=== PATIENT | male | born 1955 | race Caucasian/White ===

== ENCOUNTER → 2016-10-14 | Outpatient (CLI) | payer BC | LOC: RAD 09:10 | PROVIDERS: ATTEND Family Medicine | DX: R13.14 Dysphagia, pharyngoesophageal phase (principal) | CPT/HCPCS: 74220 ==

== ENCOUNTER 2016-10-28 09:02 | Day surgery (SDC) | payer BC ==
[~2016-10-28] VITALS: Ht 177.8 cm; Wt 108.0 kg
[~2016-10-28 09:02] MED LIST: CYCL10TA45 PO; FLUT16SP NS; HYDR-3702 PO; LACTATED RINGERS 1,000 ML IV SCH; LORA-714 PO; MELO-249 PO; METH4TAB27 PO; MNTL10T PO; NAPR375T71 PO; SERT25TA PO; SODIUM CHLORIDE FLUSH 3 ML SYR IV PRN; TBR.3OP51 OD; TIZAN4T PO
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
[2016-10-28 09:13] VITALS: BP 144/96
[2016-10-28] MEDS ORDERED: LIDOCAINE 4% TOPICAL 4.5 ML SYR ONE (09:34)
[2016-10-28] MEDS ORDERED: SIMETHICONE 40 MG/0.6 ML (MYLICON DROPS) ORAL SYRINGE ONE (09:34)
[2016-10-28] MEDS ORDERED: PROPOFOL 20 ML IV ONE (10:39)
[2016-10-28] MEDS ORDERED: MIDAZOLAM 2 MG/2 ML (VERSED) VIAL ONE (10:39)
[2016-10-28] MEDS ORDERED: ALFENTANIL 500 MCG/ML (ALFENTA) 5 ML AMP IV ONE (10:39)
[2016-10-28 11:29] VITALS: BP 127/82
[2016-10-28 11:47] VITALS: BP 145/98
--- NOTE | 2016-10-28 11:52 | OPERATIVE REPORT ---
DATE OF OPERATION: 10/28/2016 PRE-OPERATIVE DIAGNOSIS: 1. Dysphagia to solids 2. Abnormal barium swallow. POST-OPERATIVE DIAGNOSIS: Mass lesion at upper esophageal sphincter, suspicious for malignancy. OPERATIVE PROCEDURE: Esophagogastroduodenoscopy with biopsies SURGEON: Dameon Leal MD ANESTHESIA: Monitored anesthesia care FINDINGS: 1. At the upper esophageal sphincter, there is a friable, inflamed mass lesion that is suspicious for malignancy. Biopsies were obtained. 2. The duodenal mucosa appeared moderately inflamed, as did the antrum. No other abnormalities were seen. INDICATION: The patient is a 61-year-old referred by Dr. Lal with dysphagia to solids, and a barium swallow that appears to show a filling defect at the upper esophageal sphincter suspicious for a malignancy. He presents today for upper endoscopy. DESCRIPTION OF PROCEDURE: The patient was informed of the risks and benefits and agreed to proceed. His oropharynx was anesthetized with Xylocaine and a bite block was placed. Sedation was administered. The lighted endoscope was passed down the esophagus and into the stomach. It did take some effort to traverse the upper esophageal sphincter, but after some gentle manipulation of the scope, I was able to get into the esophagus. Once the stomach was insufflated the pylorus was cannulated and the first, second and third portions of the duodenum were visualized. There was some inflammatory changes, but no jose ulcers or neoplasia. The gastric antrum, body, fundus appeared fairly unremarkable, as did the cardia on retroflexion. 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 There was no mass lesion seen there. The scope was brought through the rest of the esophagus, which appeared unremarkable until the proximal esophagus, where this lesion was noted. It was right at the sphincter and it was a bit difficult to visualize, but I was able to see it and obtain photographs, as well as biopsies. The scope was removed completing the procedure. The patient tolerated the procedure without complications.
== END 2016-10-28 11:50 | disposition home or self-care (01) ==
LOC: ASC 09:02
PROVIDERS: ATTEND Surgery
DX: C15.3 Malignant neoplasm of upper third of esophagus (principal); F17.200 Nicotine dependence, unspecified, uncomplicated; F41.9 Anxiety disorder, unspecified; Z79.899 Other long term (current) drug therapy
CPT/HCPCS: 43239; J2250; J7120